=== PATIENT | female | born 1980 | race Hispanic/Latino ===

== ENCOUNTER 2020-07-30 21:43 | Emergency (ER) | payer SELFPAY ==
[~2020-07-30] VITALS: Ht 157.5 cm; Wt 106.6 kg
[2020-07-30 22:27] LABS: BASOPHILS # (AUTO) 0.1 (0.0-0.1); BASOPHILS % 0.4 % (0.0-1.0); EOSINOPHILS # (AUTO) 0.1 (0.0-0.4); EOSINOPHILS % 1.1 % (0.0-6.0); LYMPHOCYTES # (AUTO) 2.8 (1.0-3.2); LYMPHOCYTES % 22.4 % (18.0-39.1); MEAN CORPUSCULAR HEMOGLOBIN 26.2 pg (28-32); MEAN CORPUSCULAR HGB CONC 31.3 g/dL (31-35); MONOCYTES # (AUTO) 0.6 (0.2-0.8); MONOCYTES % 5.1 % (4.4-11.3); NEUTROPHILS # (AUTO) 8.8 (2.1-6.9); NEUTROPHILS % 70.3 % (38.7-80.0); PLATELET COUNT 313 x10e3/uL (140-360); RED BLOOD COUNT 3.81 x10e6/uL (3.6-5.1); RED CELL DISTRIBUTION WIDTH 14.3 % (11.7-14.4)
[2020-07-30 22:44] LABS: ANION GAP 15.5 mmol/L (8-16); BLOOD UREA NITROGEN 11 mg/dL (7-26); BUN/CREATININE RATIO 14 (6-25); CALCIUM 8.8 mg/dL (8.4-10.2); CARBON DIOXIDE 24 mmol/L (22-29); CHLORIDE 103 mmol/L (98-107); CREATININE, SERUM 0.77 mg/dL (0.57-1.11); EST GLOMERULAR FILTRATION RATE > 60 ML/MIN (60-); GLUCOSE 184 mg/dL (74-118); POTASSIUM 3.5 mmol/L (3.5-5.1); SODIUM 139 mmol/L (136-145)
--- NOTE | 2020-07-30 23:04 | Emergency Department Note ---
History of Present Illnes History of Present Illness Chief Complaint: Abdominal Complaints History of Present Illness This is a 39 year old female with vaginal bleeding since 07/15/20 . States that her bleeding has worsened in the past 24 hours with blood clots in vaginal region Historian: Patient Arrival Mode: Car Past Medical/Family History Physician Review I have reviewed the patient's past medical and family history. Any updates have been documented here. Past Medical History Recent Fever: No Clinical Suspicion of Infectio: No New/Unexplained Change in Ment: No Past Medical History: Hypertension, Diabetes, Anemia, Hyperlipedemia Other Medical History: COVID (MAY 25) Past Surgical History: Cholecysctectomy, Social History Physically hurt or threatened: No Physical Exam Related Data Allergies: Coded Allergies: shrimp (Verified Allergy, Severe, SWELLING, 07/30/20) Triage Vital Signs Vital Signs Date Time Temp Pulse Resp B/P (MAP) Pulse Ox O2 Delivery O2 Flow Rate FiO2 07/30/20 22:15 98.6 114 20 182/100 100 Room Air Physical Exam CONSTITUTIONAL HENT EYES NECK PULMONARY CARDIOVASCULAR GASTROINTESTINAL GENITOURINARY Genitourinary: Present vagina normal, Present other (no pooling of blood in vaginal vault. ) SKIN MUSCULOSKELETAL NEUROLOGICAL PSYCHOLOGICAL Results Laboratory Result Diagram: 07/30/20 2220 07/30/20 2220 Laboratory Laboratory Tests Test 07/30/20 22:20 White Blood Count 12.57 x10e3/uL (4.8-10.8) Red Blood Count 3.81 x10e6/uL (3.6-5.1) Hemoglobin 10.0 g/dL (12.0-16.0) Hematocrit 32.0 % (34.2-44.1) Mean Corpuscular Volume 84.0 fL (81-99) Mean Corpuscular Hemoglobin 26.2 pg (28-32) Mean Corpuscular Hemoglobin Concent 31.3 g/dL (31-35) Red Cell Distribution Width 14.3 % (11.7-14.4) Platelet Count 313 x10e3/uL (140-360) Neutrophils (%) (Auto) 70.3 % (38.7-80.0) Lymphocytes (%) (Auto) 22.4 % (18.0-39.1) Monocytes (%) (Auto) 5.1 % (4.4-11.3) Eosinophils (%) (Auto) 1.1 % (0.0-6.0) Basophils (%) (Auto) 0.4 % (0.0-1.0) Neutrophils # (Auto) 8.8 (2.1-6.9) Lymphocytes # (Auto) 2.8 (1.0-3.2) Monocytes # (Auto) 0.6 (0.2-0.8) Eosinophils # (Auto) 0.1 (0.0-0.4) Basophils # (Auto) 0.1 (0.0-0.1) Absolute Immature Granulocyte (auto 0.09 x10e3/uL (0-0.1) Sodium Level 139 mmol/L (136-145) Potassium Level 3.5 mmol/L (3.5-5.1) Chloride Level 103 mmol/L (98-107) Carbon Dioxide Level 24 mmol/L (22-29) Anion Gap 15.5 mmol/L (8-16) Blood Urea Nitrogen 11 mg/dL (7-26) Creatinine 0.77 mg/dL (0.57-1.11) Estimat Glomerular Filtration Rate > 60 ML/MIN (60-) BUN/Creatinine Ratio 14 (6-25) Glucose Level 184 mg/dL (74-118) Calcium Level 8.8 mg/dL (8.4-10.2) Imaging Imaging results reviewed: Yes Impressions [place] [id number] Patient Name: KRYSTLE LERMA MR #: [id number] : 1980 Age/Sex: 39/F Req #: [id number] Adm Physician: Ordered by: HUANG SANDOVAL DO Report #: [id number] Location: ER Room/Bed: Procedure: CT/CT ABDOMEN/PELVIS W Exam Date: Exam Time: REPORT STATUS: Signed EXAM: CT Abdomen and Pelvis WITH contrast INDICATION: ^dysfunctional uterine bleeding COMPARISON: None. TECHNIQUE: Abdomen and pelvis were scanned utilizing a multidetector helical scanner from the lung base to the pubic symphysis after administration of IV contrast. Coronal and sagittal reformations were obtained. Dose modulation, iterative reconstruction, and/or weight based adjustment of the mA/kV was utilized to reduce the radiation dose to as low as reasonably achievable. Routine protocol was performed. Scan was performed when during portal venous phase. IV CONTRAST: 100 mL of Isovue-370 ORAL CONTRAST: Water COMPLICATIONS: None RADIATION DOSE: Total DLP: 744.26 mGy*cm Estimated effective dose: (DLP x 0.015 x size factor) mSv CTDIvol has been reviewed. It is below the limits set by the Radiation Protocol Committee (RPC). FINDINGS: LINES and TUBES: None. LOWER THORAX: Unremarkable HEPATOBILIARY: No focal hepatic lesions. No biliary ductal dilation. GALLBLADDER: Surgically absent. SPLEEN: No splenomegaly. PANCREAS: No focal masses or ductal dilatation. ADRENALS: 2.4 x 20 cm fat-containing left adrenal nodule, representing a myelolipoma. Additional fat-containing 4.6 x 4.4 cm left adrenal mass also a myelolipoma. No right adrenal nodule. KIDNEYS/URETERS: Kidneys enhance symmetrically. No hydronephrosis. Heterogeneously enhancing 3.9 x 3.9 x 5.4 cm left renal midpole mass. No stones. GI TRACT: No abnormal distention, wall thickening, or evidence of bowel obstruction. There are diverticula within the colon without evidence of diverticulitis. Appendix is normal. PELVIC ORGANS/BLADDER: 4.8 cm right and 3.3 cm left ovarian cysts. LYMPH NODES: No lymphadenopathy. VESSELS: Unremarkable. PERITONEUM / RETROPERITONEUM: No free air or fluid. BONES: Right iliac sclerotic focus, likely a bone island. SOFT TISSUES: Unremarkable. IMPRESSION: 1. 5.4 cm left renal heterogeneously enhancing mass, likely a renal cell carcinoma. 2. Left adrenal fat-containing masses, measuring up to 4.6 cm, representing myelolipomas. 3. Bilateral ovarian cysts, measuring up to 4.8 cm on the right side. Signed by: Dr. Pedro Barrow MD on 07/31/2020 12:52 AM Dictated By: PEDRO BARROW MD Transcribed By: JANET on 07/31/2051 COPY TO: HUANG SANDOVAL DO~ Procedures 12 Lead ECG Interpretation ECG Interpretation : ECG: ECG 1 Preparator: Interpreted by ED physician Date: Jul 30, 2020 Time: 23:04 Prior ECG tracings: reviewed Rhythm: sinus rhythm Rate: normal BPM: 98 QRS axis: normal ST segments normal: Yes T waves normal: Yes Clinical Impression: normal ECG Assessment & Plan Assessment & Plan Final Impression: (1) Dysfunctional uterine bleeding (2) Renal cell carcinoma Depart Disposition: HOME, SELF-CARE Last Vital Signs Date Time Temp Pulse Resp B/P (MAP) Pulse Ox O2 Delivery O2 Flow Rate FiO2 07/30/20 22:15 98.6 114 20 182/100 100 Room Air HUANG SANDOVAL DO Jul 30, 2020 23:04
[2020-07-30 23:13] LABS: PREGNANCY TEST, URINE NEGATIVE (NEGATIVE)
[2020-07-30 23:16] LABS: BILIRUBIN,URINE NEGATIVE (NEGATIVE); CLARITY,URINE CLOUDY (CLEAR); COLOR,URINE RED (YELLOW); KETONES,URINE NEGATIVE (NEGATIVE); LEUKOCYTE ESTERASE ,URINE NEGATIVE (NEGATIVE); NITRITE,URINE NEGATIVE (NEGATIVE); PROTEIN,URINE DIPSTICK >=300 (NEGATIVE); URINE UROBILINOGEN 0.2 mg/dL (0.2 - 1)
[2020-07-30 23:18] LABS: BACTERIA,URINE FEW /HPF; EPITHELIAL CELLS,URINE RARE /LPF; RBC,URINE >50 /HPF (0-5)
[2020-07-30] MEDS ORDERED: SODIUM CHLORIDE 0.9% 50ML 50 ML ONE (23:47)
[2020-07-30] MEDS ORDERED: IOPAMIDOL 370 MG/ML 200 ML INFUS..BTL INJ ONE (23:47)
--- NOTE | 2020-07-31 00:55 | Diagnostic Imaging Report ---
EXAM: CT Abdomen and Pelvis WITH contrast INDICATION: ^dysfunctional uterine bleeding COMPARISON: None. TECHNIQUE: Abdomen and pelvis were scanned utilizing a multidetector helical scanner from the lung base to the pubic symphysis after administration of IV contrast. Coronal and sagittal reformations were obtained. Dose modulation, iterative reconstruction, and/or weight based adjustment of the mA/kV was utilized to reduce the radiation dose to as low as reasonably achievable. Routine protocol was performed. Scan was performed when during portal venous phase. IV CONTRAST: 100 mL of Isovue-370 ORAL CONTRAST: Water COMPLICATIONS: None RADIATION DOSE: Total DLP: 744.26 mGy*cm Estimated effective dose: (DLP x 0.015 x size factor) mSv CTDIvol has been reviewed. It is below the limits set by the Radiation Protocol Committee (RPC). FINDINGS: LINES and TUBES: None. LOWER THORAX: Unremarkable HEPATOBILIARY: No focal hepatic lesions. No biliary ductal dilation. GALLBLADDER: Surgically absent. SPLEEN: No splenomegaly. PANCREAS: No focal masses or ductal dilatation. ADRENALS: 2.4 x 20 cm fat-containing left adrenal nodule, representing a myelolipoma. Additional fat-containing 4.6 x 4.4 cm left adrenal mass also a myelolipoma. No right adrenal nodule. KIDNEYS/URETERS: Kidneys enhance symmetrically. No hydronephrosis. Heterogeneously enhancing 3.9 x 3.9 x 5.4 cm left renal midpole mass. No stones. GI TRACT: No abnormal distention, wall thickening, or evidence of bowel obstruction. There are diverticula within the colon without evidence of diverticulitis. Appendix is normal. PELVIC ORGANS/BLADDER: 4.8 cm right and 3.3 cm left ovarian cysts. LYMPH NODES: No lymphadenopathy. VESSELS: Unremarkable. PERITONEUM / RETROPERITONEUM: No free air or fluid. BONES: Right iliac sclerotic focus, likely a bone island. SOFT TISSUES: Unremarkable. IMPRESSION: 1. 5.4 cm left renal heterogeneously enhancing mass, likely a renal cell carcinoma. 2. Left adrenal fat-containing masses, measuring up to 4.6 cm, representing myelolipomas. 3. Bilateral ovarian cysts, measuring up to 4.8 cm on the right side. Signed by: Dr. Pedro Barrow MD on 07/31/2020 12:52 AM
[2020-07-31] MEDS ORDERED: KETOROLAC TROMETHAMINE 30 MG/ML VIAL IV STA (01:07)
[2020-07-31 01:14] LABS: INR 0.85
[2020-07-31 01:39] VITALS: BP 139/100
== END 2020-07-31 01:43 | disposition home or self-care (01) ==
LOC: ER 23:18
DX: C64.9 Malignant neoplasm of unspecified kidney, except renal pelvis (principal); N93.8 Other specified abnormal uterine and vaginal bleeding; I10 Essential (primary) hypertension; E11.65 Type 2 diabetes mellitus with hyperglycemia
CPT/HCPCS: 36415; 80048; 81001; 81025; 85025; 99284; Q9967; 74177; 85610; 93005; J1885